=== PATIENT | male | born 1995 | race African-American/Black ===

== ENCOUNTER 2017-03-24 08:08 | Emergency (ER) | payer SELFPAY ==
[~2017-03-24] VITALS: Ht 160 cm; Wt 57.0 kg
[2017-03-24] MEDS ORDERED: LIDOCAINE HCL 1% 20ML VIAL (Pyxis) INJ MC ONE (10:30)
[2017-03-24] MEDS ORDERED: BACITRACIN ZINC OINT UDPKT TOP ONE (10:30)
[2017-03-24] MEDS ORDERED: KETOROLAC 60MG/2ML VIAL IM ONE (10:30)
[2017-03-24 12:18] VITALS: BP 130/54
== END 2017-03-24 13:20 | disposition home or self-care (01) ==
LOC: ER 10:00
DX: S41.112A Laceration without foreign body of left upper arm, initial encounter (principal); X99.1XXA Assault by knife, initial encounter; Y93.01 Activity, walking, marching and hiking; Y92.480 Sidewalk as the place of occurrence of the external cause
CPT/HCPCS: 12001; 73060; 96372; 99284; J1885; J3490; X7700; Z7610

== ENCOUNTER 2019-09-22 09:38 | Emergency (ER) | payer MEDICAID ==
[~2019-09-22] VITALS: Ht 160 cm; Wt 66.0 kg
[2019-09-22] MEDS ORDERED: ACETAMINOPHEN WITH CODEINE 300/30MG TABLET PO ONE (11:30)
[2019-09-22 12:14] VITALS: BP 128/80
== END 2019-09-22 12:20 | disposition home or self-care (01) ==
LOC: ER 09:38
DX: K08.89 Other specified disorders of teeth and supporting structures (principal); K04.7 Periapical abscess without sinus
CPT/HCPCS: 99282